=== PATIENT | male | born 1990 | race Hispanic/Latino ===

== ENCOUNTER 2016-06-25 14:05 | Emergency (ER) | payer OTHER ==
[2016-06-25] MEDS ORDERED: SODIUM CHLORIDE 0.9% 1,000 ML ONE (15:25)
[2016-06-25] MEDS ORDERED: DICYCLOMINE 20MG/2ML VIAL IM ONE ×2 (15:25→15:27)
[2016-06-25] MEDS ORDERED: ONDANSETRON 4 MG VIAL ONE (15:25)
== END 2016-06-25 17:53 | disposition home or self-care (01) ==
LOC: ER 14:05
DX: E86.0 Dehydration (principal); R11.2 Nausea with vomiting, unspecified; R19.7 Diarrhea, unspecified; R10.84 Generalized abdominal pain
CPT/HCPCS: 36415; 74022; 80053; 81001; 83690; 85025; 96361; 96372; 96374; 99284; J0500; J2405